=== PATIENT | female | born 1990 | race Caucasian/White ===

== ENCOUNTER 2018-01-07 19:00 | Emergency (ER) | payer OTHER ==
[~2018-01-07] VITALS: Ht 170.2 cm; Wt 99.8 kg
[2018-01-07 19:08] VITALS: Ht 170.2 cm; Wt 99.8 kg
[2018-01-07 20:01] VITALS: BP 120/68
== END 2018-01-07 20:01 | disposition other institution (70) ==
LOC: ED 19:00
DX: Z02.89 Encounter for other administrative examinations (principal)